=== PATIENT | female | born 1945 | race Two or more races ===

== ENCOUNTER 2017-09-25 13:24 | Emergency (ER) | payer MEDICAID ==
[~2017-09-25] VITALS: Ht 167.6 cm; Wt 76.3 kg
[2017-09-25 13:36] VITALS: Ht 167.6 cm; Wt 76.3 kg
[2017-09-25 15:25] VITALS: BP 122/68
== END 2017-09-25 15:26 | disposition home or self-care (01) ==
LOC: ED 13:24
DX: S00.03XA Contusion of scalp, initial encounter (principal); M19.90 Unspecified osteoarthritis, unspecified site; H91.90 Unspecified hearing loss, unspecified ear; K21.9 Gastro-esophageal reflux disease without esophagitis; M50.30 Other cervical disc degeneration, unspecified cervical region; W19.XXXA Unspecified fall, initial encounter; Y93.89 Activity, other specified; Y92.89 Other specified places as the place of occurrence of the external cause; Y99.8 Other external cause status
CPT/HCPCS: 90715

== ENCOUNTER 2018-08-31 10:58 | Emergency (ER) | payer MEDICAID ==
[~2018-08-31] VITALS: Ht 165.1 cm; Wt 77.3 kg
[2018-08-31 11:33] VITALS: BP 118/82
== END 2018-08-31 12:02 | disposition home or self-care (01) ==
LOC: ED 10:58
DX: J86.9 Pyothorax without fistula (principal); K21.9 Gastro-esophageal reflux disease without esophagitis; E78.00 Pure hypercholesterolemia, unspecified; M19.90 Unspecified osteoarthritis, unspecified site

== ENCOUNTER 2019-06-10 13:35 | Emergency (ER) | payer MEDICAID ==
[~2019-06-10] VITALS: Ht 160 cm; Wt 78.0 kg
[2019-06-10 13:41] VITALS: BP 129/99; Ht 160 cm; Wt 78.0 kg
== END 2019-06-10 14:59 | disposition home or self-care (01) ==
LOC: ED 13:35
DX: S46.002A Unspecified injury of muscle(s) and tendon(s) of the rotator cuff of left shoulder, initial encounter (principal); K21.9 Gastro-esophageal reflux disease without esophagitis; E78.00 Pure hypercholesterolemia, unspecified; X58.XXXA Exposure to other specified factors, initial encounter; Y93.89 Activity, other specified; Y92.89 Other specified places as the place of occurrence of the external cause; Y99.8 Other external cause status
CPT/HCPCS: J1885

== ENCOUNTER 2019-10-06 17:11 | Emergency (ER) | payer MEDICAID ==
[~2019-10-06] VITALS: Ht 160 cm; Wt 80.7 kg
[2019-10-06 17:36] VITALS: BP 134/902; Ht 160 cm; Wt 80.7 kg
[2019-10-06 19:04] LABS: microscopic required? YES; urine erythrocyte 1+ (NEGATIVE)
== END 2019-10-06 21:46 | disposition home or self-care (01) ==
LOC: ED 17:11
PROVIDERS: Emergency Medicine
DX: N39.0 Urinary tract infection, site not specified (principal); K21.9 Gastro-esophageal reflux disease without esophagitis; M19.90 Unspecified osteoarthritis, unspecified site; E78.00 Pure hypercholesterolemia, unspecified
CPT/HCPCS: J0780; J1885

== ENCOUNTER 2019-10-12 09:14 | Emergency (ER) | payer MEDICAID ==
[~2019-10-12] VITALS: Ht 160 cm; Wt 78.5 kg
[2019-10-12 09:38] VITALS: Ht 160 cm; Wt 78.5 kg
[2019-10-12 10:57] LABS: BASOPHIL % 0.4 % (0-2); PLATELET COUNT 371 x10^3mcL (130-400); RED CELL DISTRIBUTION WIDTH 13.2 % (11.5-14.5)
[2019-10-12 10:58] LABS: CALCIUM 9.9 mg/dL (8.5-10.1); CARBON DIOXIDE 21.8 mmol/L (21-32); CHLORIDE SERUM 105 mmol/L (98-107); GLUCOSE SERUM 141 mg/dL (74-106); SODIUM SERUM 138 mmol/L (136-145)
[2019-10-12 11:02] LABS: ALKALINE PHOSPHATASE 93 U/L (46-116); ALT/SGPT 35 U/L (14-59); AST/SGOT 20 U/L (15-37); BILIRUBIN TOTAL 0.26 mg/dL (0.20-1.00); TOTAL PROTEIN, SERUM 7.6 g/dL (6.4-8.2)
[2019-10-12 11:06] LABS: ALBUMIN 3.3 g/dL (3.4-5.0)
[2019-10-12 11:06] LABS: UA SPECIFIC GRAVITY <=1.005 (1.005-1.035); microscopic required? YES; urine erythrocyte TRACE (NEGATIVE)
[2019-10-12 13:13] VITALS: BP 1156/63
== END 2019-10-12 14:04 | disposition home or self-care (01) ==
LOC: ED 09:14
PROVIDERS: Emergency Medicine
DX: N39.0 Urinary tract infection, site not specified (principal); M19.90 Unspecified osteoarthritis, unspecified site; K21.9 Gastro-esophageal reflux disease without esophagitis
CPT/HCPCS: J0696; J2270; Q0092